=== PATIENT | male | born 1965 | race African-American/Black ===

== ENCOUNTER 2022-01-03 16:52 | Emergency (ER) | payer OTHER, SELFPAY ==
[2022-01-03 17:00] VITALS: BP 137/80; PULSE 75; RESP 20; TEMP 36.3; O2SAT 98
--- NOTE | 2022-01-03 17:01 | ED.WOUNDLAC ---
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 Rates pain 10/10. Tetanus 2 years ago per pt. Review of Systems Review of Systems: CONSTITUTIONAL: Denies body aches, fever, chills, or sweats. CARDIOVASCULAR: Denies chest pain, palpitations, or edema. RESPIRATORY: Denies cough or dyspnea. SKIN: reports right hand wound/laceration MUSCULOSKELETAL: Denies back pain, joint pain, or myalgia. NEUROLOGIC: Denies headache, numbness, tingling, or weakness. PMFSH Comments At time of signature, I have reviewed and agree with nursing past medical, surgical, social and family history unless otherwise noted. Please see nursing chart for further information. There is no relevant family history pertinent to the presenting complaint Exam Narrative: GENERAL: appears in pain, non-toxic EYES: conjunctivae clear, and EOMI. CHEST: Clear to auscultation. No respiratory distress. HEART: Regular rate and rhythm. SKIN: Warm, dry. Right third digit at the distal phalanx palmar aspect laceration approximately 2 cm in length, edges not approximated, mild active bleeding, tender with minimal palpation. Sensation intact, denies numbness or tingling. Laceration through nail bed approximately 1 cm in length. Minimal swelling, no bruising. NEURO: Alert and oriented x3. PSYCH: Normal mood and affect Course Course Emergency Course: Patient is aware of diagnosis, understands and agrees to treatment plan. Anticipatory guidance given. Portions of this record may have been created with voice recognition software Level of Care: Express Care Visit Vital Signs Vital signs: Vital Signs Temperature 97.3 F L 01/03/22 17:00 Pulse Rate 75 01/03/22 17:00 Respiratory Rate 20 01/03/22 17:00 Blood Pressure 137/80 01/03/22 17:00 Pulse Oximetry 98 01/03/22 17:00 Oxygen Delivery Room Air 01/03/22 17:00 Temperature 97.3 F L 01/03/22 17:00 Pulse Rate 75 01/03/22 17:00 Respiratory Rate 20 01/03/22 17:00 Blood Pressure 137/80 01/03/22 17:00 Pulse Oximetry 98 01/03/22 17:00 Oxygen Delivery Room Air 01/03/22 17:00 Reviewed Transfer Transfer rationale: Pt is agreeable to transfer for imaging and wound treatment. Requests transfer to [facility] via private vehicle. Risks of transportation reviewed with pt including injury, worsening of condition and . v/u. will be driving pt; Report called to [facility], spoke with rn hemodialysis charge, Dr Hawk accepting physician. Pt is in stable condition at time of transfer. Advised to go directly to the hospital. MDM - Wound/Laceration MDM Narrative Medical decision making narrative: Given the patient's mechanism of injury, he is advised on x-ray of the finger prior to wound closure. At this time we do not have radiology. He is advised to transfer to an emergency room setting for imaging and treatment for possible open fracture. Wound cleansed, Dressing applied per RN. Differential Diagnosis Differential diagnosis: Likely laceration, abrasion, avulsion of skin and other (Subungual hematoma, nailbed laceration) Discharge Plan Discharge Clinical Impression: Finger laceration Patient Disposition: Acute Care Hospital Condition: Stable Follow-up/Referrals: UNKNOWN,DOCTOR [Primary Care Provider] - Time of Disposition: :
== END 2022-01-03 17:31 | disposition short-term general hospital (02) ==
PROVIDERS: Emergency Provider Nurse Practitioner Family
DX: S61.312A Laceration without foreign body of right middle finger with damage to nail, initial encounter (principal); W29.3XXA Contact with powered garden and outdoor hand tools and machinery, initial encounter
CPT/HCPCS: 99203; G0463

== ENCOUNTER 2022-07-04 17:34 | Emergency (ER) | payer OTHER, SELFPAY ==
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
[2022-07-04 18:20] VITALS: BP 138/73; PULSE 61; RESP 14; TEMP 36.9; O2SAT 96
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
[2022-07-04] MEDS: ACETAMINOPHEN 500 MG TABLET 1000 MG PO (19:45)
[2022-07-04] MEDS: CYCLOBENZAPRINE HCL 10 MG TABLET PO (19:45)
[2022-07-04 19:46] VITALS: BP 155/87; PULSE 76; RESP 18; TEMP 36.8; O2SAT 98
--- NOTE | 2022-07-04 19:54 | PC.NURSE ---
Pt ambulatory to BR, urinating for UA.
[2022-07-04 21:55] LABS: Appearance Urine Clear (Clear); Bilirubin Urine Negative (Negative); Blood Urine Trace-intact (Negative); Color Urine Yellow (Yellow); Glucose Urine UA Negative (Negative); Ketones Urine Negative (Negative); Leukocyte Esterase Ur Negative LEU/UL (Negative); Nitrate Urine Negative (Negative); Protein Urine Negative (Negative); Urobilinogen Urine 0.2 mg/dL (<2.0)
[2022-07-04 22:03] LABS: Add Urine Microscopic? YES
[2022-07-04 22:18] LABS: Mucus Urine Rare /lpf; RBC Urine 0-2 /hpf (0-2); WBC Urine 0-3 /hpf
[2022-07-04 22:30] VITALS: BP 127/75; PULSE 72; RESP 16; TEMP 36.8; O2SAT 99
== END 2022-07-04 22:30 | disposition home or self-care (01) ==
PROVIDERS: Emergency Provider Emergency Medicine
DX: S39.012A Strain of muscle, fascia and tendon of lower back, initial encounter (principal); W23.2XXA Caught, crushed, jammed or pinched between a moving and stationary object, initial encounter
CPT/HCPCS: 72100; 81001; 99283; A9270

== ENCOUNTER → 2022-07-18 10:58 | Outpatient (CLI) | payer OTHER, SELFPAY ==
--- NOTE | ~2022-07-18 | XR_ITS ---
XR hip LT min 3V w AP pelvis DATE: 07/18/2022 11:36 INDICATION: Low back pain, left hip pain TECHNIQUE: AP pelvis. AP, lateral and crosstable lateral views of left hip. COMPARISON: None FINDINGS: No pelvic fracture or bone destruction. The pubic symphysis and sacroiliac joints are intac t. No fracture, dislocation, avascular necrosis or bone destruction of the left hip. Hip joint spaces ap pear symmetric and relatively preserved. IMPRESSION: No significant abnormality Reviewed, dictated and finalized at location B. 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
== END ==
PROVIDERS: PCP Family Medicine; Visit Provider Nurse Practitioner Family
DX: M54.50 Low back pain, unspecified (principal); M25.552 Pain in left hip
CPT/HCPCS: 73502

== ENCOUNTER 2022-08-27 10:00 | Outpatient (RCR) | payer OTHER, SELFPAY ==
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
--- NOTE | 2022-08-27 13:45 | PTOPDC ---
Assessment and note entered by Kacie Willard, PT, DPT Evaluation Information Assessment Status Discharge Diagnosis back pain - L sided Onset 07/04/22 Subjective Information Pt states his arms and chest are a little bit sore today. He states his legs feel great. He states his back is a little sore and feels like a spasm. He states he forgot to take his pain medication this morning. He states it is getting easier to lift things at work and has returned to his usual exercises at home. Pt states he uses 40lb dumbbells to performed various shoulder exercises, wears a 40lb weighted vest and 10lb ankle weights when walking around his home. He reports a little bit of soreness from this. Pt states his hand is numb and it makes it hard to him to pick things up , he states he went to the ED and they did not find anything wrong. Pt states 50% improvement in overall symptoms. Reported Pain Level Pain Score 4: Self Report Assessment PT Clinical Summary Moshe presents to therapy today for his progress report following 4 visits of skilled therapy to treat his low back pain. Per chart review and Tokays assessment Obed does not have any functional limitations at this time. Today the pt is able to lift 50lb box from ground level and place on a shoulder height shelf, he reports this is easy difficulty. Able to perform 70lb cable pull outs without notable pain reactions. Pt able to perform 20s single leg stance on each leg without a pain response or off steady balance. Able to demonstrate all functional transfers, bed mobility, and gait without any deviations. During the 2 min walk test pt ambulated 685ft - pt states it feels like his legs are heavy and it does not feel like he has control of his legs, he later states he is bloated and feels weights down and he can feel swelling in his knee. Pt reports a score of 30/50 or 60% disability on the Oswestry pain questionnaire. Obed has met all of his therapy goals and no longer requires skilled therapy services at this time. He will be discharged at this time. Plan of Care PT Services Indicated No Treatment Frequency and to be discharged Duration
== END 2022-09-07 10:10 | disposition home or self-care (01) ==
LOC: ANHGOSHPT 10:00
PROVIDERS: PCP Family Medicine; Visit Provider Nurse Practitioner Family
DX: M25.552 Pain in left hip (principal); M54.50 Low back pain, unspecified
CPT/HCPCS: 97110; 97140; 97161; 97530